=== PATIENT | male | born 1995 | race Caucasian/White ===

== ENCOUNTER 2016-09-21 10:24 | Emergency (ER) | payer MEDICAID ==
[~2016-09-21] VITALS: Ht 172.7 cm; Wt 68.0 kg
[~2016-09-21 10:24] MED LIST: NORPTMEDS CO
[2016-09-21 11:31] VITALS: BP 120/74
== END 2016-09-21 11:56 | disposition home or self-care (01) ==
LOC: ER 10:24
DX: J02.9 Acute pharyngitis, unspecified (principal); J45.909 Unspecified asthma, uncomplicated